=== PATIENT | male | born 1990 | race Caucasian/White ===

== ENCOUNTER 2016-06-04 15:10 | Emergency (ER) | payer BC ==
[2016-06-04 15:35] VITALS: BP 140/86
--- NOTE | 2016-06-04 15:48 | UC ---
Knee Pain HPI - HPI Summary HPI Summary: Twisted left knee last night at work seems like it dislocated and he began to fall caught himself and the knee popped back in place---pain in medial proximal knee---can weight bear with pain - History of Current Complaint Chief Complaint: UCLowerExtremity Stated Complaint: LT KNEE COMPLAINT Time Seen by Provider: 06/04/16 15:27 Hx Obtained From: Patient Onset/Duration: Sudden Onset, Lasting Days - 1, Still Present Severity Initially: Moderate Severity Currently: Mild Location Of Injury: left knee Pain Intensity: 5 Pain Scale Used: 0-10 Numeric Character: Aching, Throbbing Aggravating Factor(s): Movement, Weight Bearing Alleviating Factor(s): Rest, OTC Meds Associated Signs And Symptoms: Positive: Negative Able to Bear Weight: Yes - with pain - Allergies/Home Medications Allergies/Adverse Reactions: Allergies Allergy/AdvReac Type Severity Reaction Status Date / Time No Known Allergies Allergy Verified 06/04/16 15:35 Home Medications: Home Medications Mesalamine CAP (NF) [Pentasa(NF)] 2 tab PO QID 06/04/16 [History Confirmed 06/04] predniSONE TAB* [Deltasone TAB*] 40 mg PO DAILY 06/04/16 [History Confirmed ] PMH/Surg Hx/FS Hx/Imm Hx Previously Healthy: Yes - Surgical History Surgical History: None - Family History Known Family History: Positive: None Family History: no cardiovascular issues reported in family lineage - Social History Occupation: Employed Full-time Lives: With Family Alcohol Use: None Substance Use Type: Marijuana Substance Use Comment - Amount & Last Used: occasional Smoking Status (MU): Never Smoked Tobacco - Immunization History Most Recent Influenza Vaccination: none Review of Systems Constitutional: Negative Skin: Negative Eyes: Negative ENT: Negative Respiratory: Negative Cardiovascular: Palpitations Gastrointestinal: Negative Genitourinary: Negative Motor: Negative, Other - staraten to 180 degree and flexes past 90 degress Neurovascular: Negative Musculoskeletal: Arthralgia - left knee Neurological: Negative Psychological: Negative All Other Systems Reviewed And Are Negative: Yes Physical Exam Triage Information Reviewed: Yes Appearance: Well-Appearing, Well-Nourished, Pain Distress - mild Vital Signs: Initial Vital Signs Temp 98.8 F 06/04/16 15:28 Pulse 73 06/04/16 15:28 Resp 18 02/24/17 15:28 BP 140/86 06/04/16 15:28 Pulse Ox 99 06/04/16 15:28 Vital Signs Reviewed: Yes Eye Exam: Normal Eyes: Positive: Conjunctiva Clear ENT Exam: Normal ENT: Positive: Normal ENT inspection, Hearing grossly normal. Negative: Nasal congestion, Nasal drainage, Trismus, Muffled/hoarse voice Dental Exam: Normal Neck exam: Normal Neck: Positive: Supple, Nontender Respiratory Exam: Normal Respiratory: Positive: Chest non-tender, Normal breath sounds, No respiratory distress Cardiovascular Exam: Normal Cardiovascular: Positive: RRR, Pulses Normal, Brisk Capillary Refill Musculoskeletal Exam: Normal Musculoskeletal: Positive: Strength Intact, ROM Intact, No Edema Neurological Exam: Normal Neurological: Positive: Alert, Muscle Tone Normal Psychological Exam: Normal Skin Exam: Normal Diagnostics - Radiology No standard instances Xray Interpretation: No Acute Changes Radiology Interpretation Completed By: Radiologist Re-Evaluation - Re-Evaluation First Eval Change: Unchanged - Bill wrap applied---patient refused crutches, Knee Pain Course/Dx - Course Course Of Treatment: rice, limited to non-weightbearing follow with orthopedic md as reccommended - Differential Dx/Diagnosis Differential Diagnosis/HQI/PQRI: Cellulitis, Contusion, Fracture (Closed), Sprain, Strain, Tendonitis Provider Diagnoses: knee sprain (L) Discharge - Discharge Plan Condition: Stable Disposition: HOME Patient Education Materials: Knee Sprain (ED), Crutch Instructions (ED), RICE Therapy (ED) Forms: *Work Release Referrals: Jasper Flaherty MD [Primary Care Provider] - Ochoa Chong MD [Medical Doctor] - 3 Days Additional Instructions: limit weight bearing until pain resolved, / evaluated by orthopedic MD
--- NOTE | 2016-06-04 17:42 | RAD ---
Indication: Left knee injury. 4 views left knee demonstrates no fracture or dislocation. No evidence of joint effusion is noted. IMPRESSION: Unremarkable left knee.
== END 2016-06-04 18:15 | disposition home or self-care (01) ==
LOC: UCCORT 15:10
DX: S83.92XA Sprain of unspecified site of left knee, initial encounter (principal); X50.1XXA Overexertion from prolonged static or awkward postures, initial encounter; Y93.9 Activity, unspecified; Y92.9 Unspecified place or not applicable; Y99.0 Civilian activity done for income or pay; F12.90 Cannabis use, unspecified, uncomplicated
CPT/HCPCS: 99212; G0463